=== PATIENT | female | born 1975 | race Caucasian/White ===

== ENCOUNTER 2018-06-27 11:57 | Day surgery (SDC) | payer OTHER, BC ==
[2018-06-27] MEDS ORDERED: PROPOFOL 20 ML (13:16)
[2018-06-27] MEDS ORDERED: LIDOCAINE 100 MG SYRINGE (13:16)
[2018-06-27] MEDS ORDERED: morphine 2 MG INJ IV (13:30)
== END 2018-06-27 15:04 | disposition home or self-care (01) ==
LOC: GIL 11:57
DX: K21.0 Gastro-esophageal reflux disease with esophagitis (principal); K29.50 Unspecified chronic gastritis without bleeding
CPT/HCPCS: 43239; 84703; 88305; 88312; 88313